=== PATIENT | female | born 1960 | race American Indian/Alaskan Native ===

== ENCOUNTER 2017-03-16 22:39 | Emergency (ER) | payer SELFPAY ==
--- NOTE | 2017-03-17 01:28 | Emergency Department Report ---
Upper Extremity - HPI Chief Complaint: Extremity Injury, Upper Stated Complaint: RT ARM PAIN Time Seen by Provider: 03/17/17 00:46 Upper Extremity: Right Arm (right humerus) Occurred When: Today Mechanism: Hyperextension Severity: severe Symptoms: Yes Pain with Movement, Yes Swelling, No Deformity, No Limited Range of Movement, No Numbness, No Weakness, No Bruising/Ecchymosis, No Laceration or Abrasion Other History: 56-year-old female past medical history none presents with complaint of right mid arm pain. Patient states that as she tossed a garbage bag she felt a pop in her right arm and severe pain which is why she presented to the ED. Patient states she has severe pain when she tries to lift her right arm. Denies any other injuries. Accompanied by her boyfriend. Patient is awake and alert 3 patient is refusing any analgesia at this time despite her severe pain. I asked the patient why and she said she does not like to take medications. ED Review of Systems ROS: Stated complaint: RT ARM PAIN Other details as noted in HPI Constitutional: denies: chills, fever Eyes: denies: eye pain, eye discharge, vision change ENT: denies: ear pain, throat pain Respiratory: denies: cough, shortness of breath, wheezing Cardiovascular: denies: chest pain, palpitations Endocrine: no symptoms reported Gastrointestinal: denies: abdominal pain, nausea, diarrhea Genitourinary: denies: urgency, dysuria, discharge Musculoskeletal: denies: back pain, joint swelling, arthralgia Skin: denies: rash, lesions Neurological: denies: headache, weakness, paresthesias Psychiatric: denies: anxiety, depression Hematological/Lymphatic: denies: easy bleeding, easy bruising ED Past Medical Hx - Past Medical History Previous Medical History?: No - Surgical History Past Surgical History?: No - Social History Smoking Status: Current Every Day Smoker Substance Use Type: Marijuana - Medications Home Medications: Home Medications Medication Instructions Recorded Confirmed Last Taken Type HYDROcodone/ACETAMINOPHEN [[place] 1 each PO Q8H PRN #20 tablet 03/17/17 Unknown Rx 5-325 Tablet] Naproxen 250 mg PO BID PRN #30 tablet 03/17/17 Unknown Rx Upper Extremity Exam - Exam General: Vital signs noted. No distress. Alert and acting appropriately. Head and Torso: No HEENT Abnormality, No Neck Tenderness, No Chest/Lungs Abnormality, No Abdominal Tenderness, No Back Tenderness Shoulder Exam: Yes Normal Range of Motion in Shoulder, No Shoulder Tenderness, No Clavicle Tenderness, No Shoulder Deformity, No AC Joint Tenderness Arm Exam: Yes Arm/Humerus Tenderness (right midshaft humerus tenderness), No Arm Deformity Elbow: No Elbow Tenderness, No Normal Range of Motion in Elbow, No Elbow Deformity Forearm: No Forearm Tenderness, No Forearm Deformity, No Pain with Pronation, No Pain with Supination Wrist: Yes Normal ROM in Wrist (wrist flexion and extension fully intact on clinical exam and isolation of right wrist), No Wrist Tenderness, No Wrist Deformity, No Snuffbox Tenderness, No Pain with Axial Thumb Compression Hand: Yes Normal ROM in Digit(s) (range of motion PIPs DIPs MCPs fully intact right hand), No Hand Tenderness, No Hand Deformity, No Digit Tenderness, No Digit(s) Deformity, No Tendon Dysfunction CMS Exam: Yes Normal Capillary Refill (distal capillary refill right hand fully intact), No Broken Skin, No Normal Distal Pulses (distal radial and ulnar pulses intact on clinical exam), No Normal Distal Sensation Front/Back of Body, Lg (Color): 1 - Severe pain in this region here ED Course Vital Signs 03/16/17 23:55 Temperature 98.4 F Pulse Rate 91 H Respiratory 20 Rate Blood Pressure 184/106 O2 Sat by Pulse 99 Oximetry ED Medical Decision Making - Medical Decision Making A/P: Closed Fractur of right mid humerus, arm injury 1-case discussed with Dr. Perez 2-distal right UE neurvascualrly intact on exam, elbow ROM flexion/extension intact, wrist flexion and extension intact, no clinical signs of wristdrop or radial nerve impingement. Range of motion all fingers MCP's DIPs PIPs and lumbricals intact on exam. Distal brachial ulnar and radial pulses strong to palpation and capillary refill less than one second all fingers 3-pt placed in a shoulder immobilizer and [place] brace right humerus before discharge 4- short course nor code and naproxen when necessary for pain 5- I specifically advised patient to follow-up with orthopedics as soon as possible and provided her with information for local orthopedics practice. Patient stated that she will call tomorrow for follow-up. I emphasized to the patient that if she notices any severe swelling of right upper extremity loss of sensation in fingertips or lack of radial pulse and/or dark coloration of right upper extremity to return to the ED [facility] as these may be signs of ischemia. Patient stated that she understood my instructions. Patient is refusing any oral analgesics or analgesics otherwise at this time states she prefers not to take medicine unless absolutely necessary. He is being driven home by her boyfriend was at bedside with her. Patient's boyfriend agreed to assist her and ensure that she follow up with orthopedics and to help check on her RUE on a daily basis, this conversation was witnessed by creative technologist Ms. Barnett at bedside. Critical care attestation.: If time is entered above; I have spent that time in minutes in the direct care of this critically ill patient, excluding procedure time. ED Disposition Clinical Impression: Right humeral fracture Qualifiers: Encounter type: initial encounter Humerus Location: shaft Fracture type: closed Fracture morphology: oblique Fracture alignment: displaced Qualified Code (s): S42.331A - Displaced oblique fracture of shaft of humerus, right arm, initial encounter for closed fracture Disposition: TO HOME OR SELFCARE Is pt being admited?: No Does the pt Need Aspirin: No Condition: Stable Instructions: Arm Fracture in Adults (ED), Splint Care (ED) Prescriptions: HYDROcodone/ACETAMINOPHEN [[place] 5-325 Tablet] 1 each PO Q8H PRN #20 tablet PRN Reason: Pain Naproxen 250 mg PO BID PRN #30 tablet PRN Reason: Pain Referrals: SAMI MICHAELS MD [Staff Physician] - 3-5 Days [facility] [Provider Group] - 3-5 Days Forms: Accompanied Note, Work/School Release Form(ED) Time of Disposition: 02:06
--- NOTE | 2017-03-17 02:06 | XRay Report ---
FINAL REPORT EXAM: XR HUMERUS 1V RT HISTORY: post splint xray right humerus fracture COMPARISON: None available. FINDINGS: Single view of the right humerus obtained. There is an oblique fracture extending through the mid humeral diaphysis. There is medial displacement of the distal fracture segment by approximately 8 millimeters. Joint spaces are grossly preserved. IMPRESSION: Mid humeral diaphyseal fracture.
[2017-03-17 02:25] VITALS: BP 185/108
--- NOTE | 2017-03-17 08:26 | XRay Report ---
XRAY RIGHT SHOULDER THREE VIEWS: 03/16/17 22:39:00 CLINICAL: Right shoulder pain. FINDINGS: A comminuted oblique fracture of the mid humeral diaphysis is identified on 2 views. Mild displacement of the medial distal fracture fragment. No callus. Normal glenohumeral alignment. Mild acromioclavicular joint arthritis with a downsloping acromion. Normal glenohumeral joint. Normal soft tissues. IMPRESSION: An acute closed mildly displaced traumatic fracture of the mid humerus. Mild acromioclavicular joint arthritis.
== END 2017-03-17 02:19 | disposition home or self-care (01) ==
LOC: ED 22:39
DX: S42.331A Displaced oblique fracture of shaft of humerus, right arm, initial encounter for closed fracture (principal); F17.200 Nicotine dependence, unspecified, uncomplicated; X50.9XXA Other and unspecified overexertion or strenuous movements or postures, initial encounter; Y93.9 Activity, unspecified; Y92.9 Unspecified place or not applicable; Y99.9 Unspecified external cause status